=== PATIENT | male | born 1985 ===

== ENCOUNTER 2021-06-11 16:47 | Outpatient (CLI) | payer OTHER, SELFPAY ==
[2021-06-11 18:00] LABS: SARS-CoV-2 RNA PCR Negative (Negative)
== END 2021-06-11 16:48 | disposition home or self-care (01) ==
PROVIDERS: PCP Physician Assistant; Visit Provider Physician Assistant
DX: B34.9 Viral infection, unspecified (principal); Z20.822 Contact with and (suspected) exposure to COVID-19
CPT/HCPCS: C9803; U0003; U0005